=== PATIENT | female | born 1950 | race Caucasian/White ===

== ENCOUNTER → 2016-07-20 | Outpatient (CLI) | payer BC ==
[~2016-07-20] MED LIST: ALLDSR/24 PO; CFT250 PO; ESTR0.3T PO; EZET10TA38 PO; FSM70 PO; MOME50SP5; PANT40TA PO
--- NOTE | 2016-07-20 11:33 | DIAGNOSTIC IMAGING REPORT ---
EXAMINATION: RENAL ULTRASOUND CLINICAL HISTORY: Chronic renal disease, hypertension. COMPARISON STUDY: Ultrasound study dated 08/22/2014 FINDINGS: The right kidney measures 10.2 cm. The left kidney measures 9.2 cm. There is mild dilatation of the right renal collecting system, and proximal right ureter. There is no left collecting system dilatation. There is a 4 mm echogenic focus within the right kidney. This did not shadow. This could reflect a nonshadowing calculus. No bladder abnormalities are visualized. Bilateral ureteral jets were visualized. IMPRESSION : 1. Mild dilatation of the right renal collecting system and right ureter. No evidence of high-grade obstruction as a right ureteral jet was visualized 2. 4 mm echogenic focus within the right kidney. A nonshadowing calculus cannot be excluded 3. Normal renal cortical echogenicity. Symmetric renal cortical thickness Electronically signed by: Kyrie Smith M.D. 07/20/2016 11:31 AM
== END | disposition home or self-care (01) ==
LOC: C.ULTR 10:41
PROVIDERS: ATTEND Internal Medicine Nephrology
DX: I12.9 Hypertensive chronic kidney disease with stage 1 through stage 4 chronic kidney disease, or unspecified chronic kidney disease (principal); N18.3 Chronic kidney disease, stage 3 (moderate); K76.0 Fatty (change of) liver, not elsewhere classified; E55.9 Vitamin D deficiency, unspecified; R93.421 Abnormal radiologic findings on diagnostic imaging of right kidney

== ENCOUNTER → 2016-07-22 | Outpatient (CLI) | payer BC ==
--- NOTE | 2016-07-22 09:00 | DIAGNOSTIC IMAGING REPORT ---
CT ABDOMEN NO IV/ORAL CONT (CT) CT DOSE: 285.04 mGy.cm CLINICAL HISTORY: Stage III chronic renal disease TECHNIQUE: Unenhanced images were obtained through the upper abdomen. COMPARISON STUDY: Renal ultrasound dated 07/20/2016 FINDINGS: The lung bases are unremarkable in appearance. No hepatic masses are visualized this noncontrast study. The gallbladder surgically absent. The splenic masses are visualized. No pancreatic masses are visualized. No adrenal masses are visualized. There is no evidence of abdominal aortic dilatation. The appendix appears normal. No renal calculi are visualized. There is mild right-sided hydronephrosis and dilatation of the proximal most ureter. No obstructing calculi are visualized. IMPRESSION: 1. Mild right-sided hydronephrosis. This has been described previously, and may be secondary to a mild UPJ type obstruction. 2. No renal calculi identified. Electronically signed by: Kyrie Smith M.D. 07/22/2016 8:58 AM
== END | disposition home or self-care (01) ==
LOC: C.CTS 08:10
PROVIDERS: ATTEND Internal Medicine Nephrology
DX: N18.3 Chronic kidney disease, stage 3 (moderate) (principal)

== ENCOUNTER → 2017-01-01 | Outpatient (CLI) | payer BC ==
--- NOTE | 2017-01-01 13:27 | MAMMOGRAPHY REPORT ---
BILATERAL DIGITAL SCREENING MAMMOGRAM TOMOSYNTHESIS WITH CAD: 01/01/2017 CLINICAL HISTORY: Routine screening. TECHNIQUE: Breast tomosynthesis in addition to standard 2D mammography was performed. Current study was also evaluated with a Computer Aided Detection (CAD) system. COMPARISON: Comparison is made to exams dated: 01/16/2016 mammogram, 01/08/2016 mammogram, 01/01/2016 m ammogram, 12/28/2014 mammogram, 12/27/2013 mammogram, and 12/26/2012 mammogram - [facility] enter. BREAST COMPOSITION: There are scattered areas of fibroglandular density in both breasts. FINDINGS: No suspicious masses, calcifications, or areas of architectural distortion are noted in ei ther breast. There has been no significant interval change compared to prior exams. A biopsy marker clip is again noted in the right lower inner quadrant. IMPRESSION: ACR BI-RADS CATEGORY 2: BENIGN There is no mammographic evidence of malignancy. A 1 year screening mammogram is recommended. The pa tient will receive written notification of the results. Approximately 10% of breast cancers are not detected with mammography. A negative mammographic report should not delay biopsy if a clinically suggestive mass is present. Alice Ackerman M.D. /:01/01/2017 09:11:30 [employer] Electrician: Srinivas AMBROCIO([place]vador)(M), [facility] letter sent: Normal 1/2 BI-RADS Code: ACR BI-RADS Category 2: Benign
== END | disposition home or self-care (01) ==
LOC: C.MAMM 07:39
PROVIDERS: ATTEND Family Medicine
DX: Z12.31 Encounter for screening mammogram for malignant neoplasm of breast (principal)

== ENCOUNTER → 2017-01-08 | Outpatient (CLI) | payer BC ==
--- NOTE | 2017-01-08 09:18 | DIAGNOSTIC IMAGING REPORT ---
ABDOMINAL ULTRASOUND COMPLETE HISTORY: LIVER CIRRHOSIS SECONDARY TO [place]. COMPARISON: Abdomen and pelvis CT 07/22/2016. FINDINGS: Pancreas: The pancreas demonstrates a normal echotexture. Liver: 13.2 cm in length. Normal echotexture. No hepatic masses. Gallbladder: The gallbladder is surgically absent. CBD: Difficulty visualized but likely measures 5 mm in diameter. Kidneys: Mild right hydronephrosis, unchanged. Normal left kidney. Spleen: Normal in size. Aorta: Normal in caliber. IVC: Patent. IMPRESSION: 1. The liver appears sonographically unremarkable. 2. Cholecystectomy. 3. Mild right hydronephrosis, unchanged. Electronically signed by: Elbert Mcgowan M.D. 01/08/2017 9:17 AM Dictated Date/Time: 01/08/2017 9:14 AM
== END | disposition home or self-care (01) ==
LOC: C.ULTRBC 08:35
PROVIDERS: ATTEND Internal Medicine
DX: K75.81 Nonalcoholic steatohepatitis (NASH) (principal)

== ENCOUNTER → 2017-08-27 | Outpatient (CLI) | payer BC ==
--- NOTE | 2017-08-27 10:13 | DIAGNOSTIC IMAGING REPORT ---
ULTRASOUND ABDOMEN COMPLETE CLINICAL HISTORY: Cirrhosis. [place]. COMPARISON STUDY: Abdominal ultrasound dated 01/08/[address] dated 07/22/2016. TECHNIQUE: Real-time, grayscale, and color flow sonography of the abdomen was performed. Images are reviewed in the transverse and longitudinal planes. FINDINGS: Liver: The liver is normal in size and heterogeneous in echotexture. There is no intrahepatic biliary ductal dilatation. The main portal vein is patent. Gallbladder: The gallbladder is surgically absent. The common bile duct measures up to 0.5 cm in diameter. Pancreas: Visualized portions of the pancreatic head and body are normal in appearance. Spleen: The spleen is normal in size and echotexture, measuring 8.3 cm in length. Kidneys: The kidneys demonstrate cortical atrophy. Mild to moderate right-sided hydronephrosis is unchanged. The right kidney measures 9.6 cm in length and the left kidney measures 9.2 cm in length. No shadowing calculi are identified. Abdominal vasculature: Visualized portions of the abdominal aorta and IVC are normal as imaged. Ascites: None. IMPRESSION: 1. The liver is normal in size and heterogeneous in echotexture. 2. The gallbladder is surgically absent. 3. Mild to moderate right hydronephrosis is unchanged from prior studies. Electronically signed by: Haresh Chambers M.D. 08/27/2017 10:11 AM Dictated Date/Time: 08/27/2017 10:09 AM
== END | disposition home or self-care (01) ==
PROVIDERS: ATTEND Internal Medicine
DX: K75.81 Nonalcoholic steatohepatitis (NASH) (principal); K74.60 Unspecified cirrhosis of liver; N13.30 Unspecified hydronephrosis; Z90.49 Acquired absence of other specified parts of digestive tract; Z88.1 Allergy status to other antibiotic agents; Z88.2 Allergy status to sulfonamides; Z91.048 Other nonmedicinal substance allergy status; Z88.8 Allergy status to other drugs, medicaments and biological substances

== ENCOUNTER → 2018-02-22 | Outpatient (CLI) | payer BC ==
[~2018-02-22] MED LIST changes: -ALLDSR/24 PO; -CFT250 PO; +ERGO500037 PO; -ESTR0.3T PO; -EZET10TA38 PO; +FLUT50SP45 NAE; -FSM70 PO; +LPR50X PO; -MOME50SP5
== END | disposition home or self-care (01) ==
LOC: C.MAMM 10:52
PROVIDERS: ATTEND Family Medicine
DX: M81.0 Age-related osteoporosis without current pathological fracture (principal); M85.89 Other specified disorders of bone density and structure, multiple sites